=== PATIENT | male | born 1960 | race Caucasian/White ===

== ENCOUNTER 2020-11-21 10:20 | Emergency (ER) | payer MEDICARE ==
[~2020-11-21] VITALS: Ht 180.3 cm; Wt 87.4 kg
[2020-11-21 11:13] LABS: BASOPHILS % (AUTO) 0 % (0-1); EOSINOPHILS % (AUTO) 0 % (1-7); LYMPHOCYTES % (AUTO) 13 % (22-44); MEAN CORPUSCULAR HGB CONC 35.2 g/dL (33.2-36.2); MEAN PLATELET VOLUME 7.3 fL (7.4-10.4); MONOCYTES % (AUTO) 7 % (2-9); NEUTROPHILS % (AUTO) 80 % (42-75); PLATELET COUNT 249 x10^3/uL (130-400); RED BLOOD COUNT 4.32 x10^6/uL (4.38-5.82); RED CELL DISTRIBUTION WIDTH 13.6 % (9.4-14.8)
[2020-11-21] MEDS ORDERED: ASPI-963 PO (11:15)
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
[2020-11-21 11:23] LABS: ALANINE AMINOTRANSFERASE 25 U/L (12-78); ALBUMIN 2.7 g/dL (3.4-5.0); ANION GAP 8 mmol/L (5-15); CALCIUM 8.1 mg/dL (8.5-10.1); CHLORIDE 98 mmol/L (98-107); CREATININE 0.64 mg/dL (0.7-1.3)
[2020-11-21 11:25] LABS: ALKALINE PHOSPHATASE 77 U/L (45-117); BILIRUBIN,TOTAL 0.4 mg/dL (0.2-1.0); TOTAL PROTEIN 6.7 g/dL (6.4-8.2)
--- NOTE | 2020-11-21 12:15 | NUR ---
TASK RN: PT [id number] 87-90% ON RA, PLACED ON 2L NC.
[2020-11-21] MEDS ORDERED: DEXAMETHASONE 4 MG TABLET PO ONE (12:30)
[2020-11-21] MEDS ORDERED: CEFDINIR 300 MG CAPSULE ONE (12:57)
[2020-11-21] MEDS ORDERED: DEXAMETHASONE 4 MG TABLET ONE (12:57)
[2020-11-21] MEDS ORDERED: AZITHROMYCIN 250 MG TABLET ONE (12:58)
[2020-11-21] MEDS ORDERED: CEFDINIR 300 MG CAPSULE PO ONE (13:00)
[2020-11-21] MEDS ORDERED: AZITHROMYCIN 500 MG TABLET PO ONE (13:00)
--- NOTE | 2020-11-21 13:12 | NUR ---
PT RA SAT >92%, PT WILL BE D/C HOME PER ERMD. PT MEDICATED PER ORDERS.
--- NOTE | 2020-11-21 14:01 | NUR ---
PT D/C'D PER ERMD ORDERS. PT VERBALIZED UNDERSTANDING OF D/C ORDERS, HAS ALL OWN BELONGINGS UPON D/C.
[2020-11-21 14:02] VITALS: BP 118/70
== END 2020-11-21 14:04 | disposition home or self-care (01) ==
LOC: ED 12:01
DX: U07.1 COVID-19 (principal); S09.90XA Unspecified injury of head, initial encounter; M54.9 Dorsalgia, unspecified; J18.9 Pneumonia, unspecified organism; E87.1 Hypo-osmolality and hyponatremia; X58.XXXA Exposure to other specified factors, initial encounter; Y93.89 Activity, other specified; Y92.89 Other specified places as the place of occurrence of the external cause; Y99.8 Other external cause status
CPT/HCPCS: 36415; 70450; 71045; 80053; 85025; 93005; 99285